=== PATIENT | female | born 1940 | race Caucasian/White ===

== ENCOUNTER 2024-09-11 16:08 | Inpatient (IN) | payer MEDICAID ==
[~2024-09-11] VITALS: Ht 149.9 cm; Wt 69.4 kg
[2024-09-11] MEDS: SODIUM CHLORIDE 0.9% 1,000 ML IV ONE (16:56)
[2024-09-11 17:38] LABS: BG BASE EXCESS -8.3 mmol/L (-2.0-3.0); BG CARBOXYHEMOGLOBIN 0.6 % (0.5-1.5); BG DEOXYHEMOGLOBIN 4.2 % (0.0-5.0); BG FRACTION INSPIRED OXYGEN 21; BG HCO3 ACT 16.9 mmol/L (21.0-28.0); BG METHEMOGLOBIN 0.3 % (0.5-1.5); BG OXYGEN SATURATION 95.8 % (94.0-98.0); BG OXYHEMOGLOBIN 94.9 % (94.0-98.0); BG PCO2 34.1 mmHg (32.0-45.0); BG PH 7.313 (7.350-7.450); BG PO2 80.2 mmHg (83.0-108.0); BG SAMPLE SITE RIGHT BRACHIAL; BG TOTAL HEMOGLOBIN 14.1 g/dL (12.0-16.0); BG VENT MODE ROOM AIR
[2024-09-11 17:59] LABS: CHLORIDE 95 mEq/L (98-107); POTASSIUM 4.8 mEq/L (3.5-5.1); SODIUM 129 mEq/L (136-145)
[2024-09-11 18:00] LABS: CALCIUM 9.1 mg/dL (8.7-10.4); CARBON DIOXIDE 20 mEq/L (21-32)
[2024-09-11 18:03] LABS: HEMATOCRIT. 41.2 % (36.0-48.0); HEMOGLOBIN. 13.4 g/dL (12.0-16.0); LYMPHOCYTES % 8.4 % (20.0-50.0); MEAN CORPUSCULAR HEMOGLOBIN 28.5 pg (28.0-32.0); MEAN CORPUSCULAR HGB CONC 32.4 g/dL (31.0-37.0); NEUTROPHILS % 85.6 % (40.0-76.0); PLATELET 133 x1000/uL (130-400); RED BLOOD CELL COUNT 4.68 mill/uL (4.2-5.4); RED CELL DISTRIBUTION WIDTH 14.9 % (11.6-14.6); WHITE BLOOD COUNT 6.7 x1000/uL (4.5-11.0)
[2024-09-11 18:05] LABS: CREATININE 1.3 mg/dL (0.6-1.0); UREA NITROGEN BLOOD 21 mg/dL (9-23)
[2024-09-11 18:06] LABS: TROPONIN I HIGH SENSITIVITY 8 ng/L (3.0-34)
[2024-09-11 18:07] LABS: ALANINE AMINOTRANSFERASE 12 IU/L (10-49); ALBUMIN 4.1 g/dL (3.2-4.8); ASPARTATE AMINOTRANSFERASE 13 IU/L (<34); BILIRUBIN DIRECT 0.2 mg/dL (<=3.0); PHOSPHORUS 3.7 mg/dL (2.5-4.9)
[2024-09-11 18:08] LABS: BETA HYDROXYBUTYRATE 5.8 mMol/L (0.0-0.3); BILIRUBIN TOTAL 0.6 mg/dL (0.1-1.0); PROTEIN TOTAL 7.7 g/dL (6.0-8.3)
[2024-09-11 18:44] LABS: GLUCOSE 689 mg/dL (70-105)
[2024-09-11] MEDS ORDERED: KCL 20MEQ/100ML PREMIX 100 ML IV PRN (18:45)
[2024-09-11] MEDS ORDERED: POTASSIUM CHLORIDE 40 MEQ in SODIUM CHLORIDE 0.9% 230 ML IV PRN (18:45)
[2024-09-11] MEDS ORDERED: SODIUM PHOSPHATE 15 MMOL in SODIUM CHLORIDE 0.9% 245 ML IV PRN (18:45)
[2024-09-11] MEDS ORDERED: MAGNESIUM 2 G PREMIX 50 ML IV PRN (18:45)
[2024-09-11] MEDS ORDERED: BLOOD SUGAR DIAGNOSTIC STRIP TEST PRN (18:45)
[2024-09-11] MEDS ORDERED: DEXTROSE 50% WATER 50ML SYRINGE IV PRN (18:45)
[2024-09-11] MEDS ORDERED: INSULIN REGULAR (DRIP) 100 UNITS in SODIUM CHLORIDE 0.9% 99 ML IV SCH (18:45)
[2024-09-11] MEDS: BLOOD SUGAR DIAGNOSTIC STRIP TEST SCH (19:25)
[2024-09-11] MEDS: INSULIN REGULAR 100U/100ML PMX 100 ML IV SCH (19:30)
[2024-09-11] MEDS: INSULIN REGULAR (HUMULIN R) 1000UNITS/10ML VIAL IV ONE (19:35)
[2024-09-11] MEDS ORDERED: IPRATROPIUM/ALBUTEROL 0.5-3(2.5)MG/3ML NEB HHN PRN (20:00)
[2024-09-12] MEDS: PANTOPRAZOLE SODIUM 40 MG/VIAL IV SCH (00:31)
[2024-09-12] MEDS: DEXTROSE 5% WATER 1,000 ML IV ONE (03:51)
[2024-09-12 05:16] LABS: HEMATOCRIT 38.4 % (36.0-48.0); HEMOGLOBIN 12.8 g/dL (12.0-16.0); MEAN CORPUSCULAR HEMOGLOBIN 28.6 pg (28.0-32.0); MEAN CORPUSCULAR HGB CONC 33.4 g/dL (31.0-37.0); MEAN CORPUSCULAR VOLUME 85.6 fL (81.0-99.0); PLATELET 127 x1000/uL (130-400); RED BLOOD CELL COUNT 4.49 mill/uL (4.2-5.4); RED CELL DISTRIBUTION WIDTH 14.9 % (11.6-14.6); WHITE BLOOD COUNT 7.7 x1000/uL (4.5-11.0)
[2024-09-12 05:25] LABS: CHLORIDE 100 mEq/L (98-107); POTASSIUM 3.5 mEq/L (3.5-5.1); SODIUM 134 mEq/L (136-145)
[2024-09-12 05:26] LABS: CALCIUM 9.2 mg/dL (8.7-10.4)
[2024-09-12 05:31] LABS: GLUCOSE 286 mg/dL (70-105); UREA NITROGEN BLOOD 21 mg/dL (9-23)
[2024-09-12 05:33] LABS: PHOSPHORUS 1.9 mg/dL (2.5-4.9)
[2024-09-12 05:34] LABS: CARBON DIOXIDE 25 mEq/L (21-32)
[2024-09-12] MEDS ORDERED: ACETAMINOPHEN 325MG TABLET PO PRN (09:30)
[2024-09-12] MEDS ORDERED: ONDANSETRON HCL 4MG/2ML INJ IV PRN (09:30)
[2024-09-12] MEDS ORDERED: DEXTROSE 50% WATER 50ML SYRINGE IV PRN (09:30)
[2024-09-12] MEDS: INSULIN GLARGINE 100 UNITS/ML SUBCUT NR (09:47)
[2024-09-12] MEDS ORDERED: INSULIN GLARGINE 100 UNITS/ML SUBCUT SCH (10:00)
[2024-09-12] MEDS: BLOOD SUGAR DIAGNOSTIC STRIP TEST SCH (11:45)
[2024-09-12] MEDS: INSULIN LISPRO 100 UNITS/ML SUBCUT SCH (12:57)
[2024-09-12 20:00] VITALS: BP 103/48; PULSE 76; RESP 18; TEMP 36.50292; TEMP 36.5292; O2SAT 96
[2024-09-12] MEDS: INSULIN GLARGINE 100 UNITS/ML SUBCUT SCH (21:15)
[2024-09-13] VITALS: BP 115/54; PULSE 82; RESP 20; TEMP 36.72516; O2SAT 97
[2024-09-13 04:00] VITALS: BP 123/58; PULSE 73; RESP 20; TEMP 36.9474; O2SAT 98
[2024-09-13 08:00] VITALS: BP 133/44; PULSE 77; RESP 18; TEMP 36.114; O2SAT 96
[2024-09-13] MEDS: INSULIN LISPRO 100 UNITS/ML SUBCUT SCH (11:44)
[2024-09-13 12:20] VITALS: BP 135/63; PULSE 67; RESP 20; TEMP 36.61404; O2SAT 97
[2024-09-13 13:39] VITALS: BP 125/63; PULSE 70; TEMP 98; O2SAT 100
[2024-09-13 14:17] LABS: CLARITY URINE TURBID (CLEAR); COLOR URINE DARK YELLOW (YELLOW); GLUCOSE URINE 1+ (NEGATIVE); KETONES URINE 1+ (NEGATIVE); LEUKOCYTE ESTERASE URINE 3+ (NEGATIVE); NITRITE URINE POSITIVE (NEGATIVE); OCCULT BLOOD URINE TRACE (NEGATIVE); PROTEIN URINE 1+ (NEGATIVE); SPECIFIC GRAVITY URINE 1.023 (1.005-1.030)
[2024-09-13 14:49] LABS: SQUAMOUS EPITHELIAL CELL URINE 1+ /lpf (RARE/1+)
[2024-09-13 15:00] LABS: BACTERIA URINE 4+; RBC URINE 0-2 /hpf (0-2); WBC URINE TNTC /hpf (0-2)
[2024-09-13] MEDS ORDERED: INSULIN GLARGINE 100 UNITS/ML SUBCUT SCH (22:00)
== END 2024-09-13 18:00 | disposition home or self-care (01) | DRG 420 ==
LOC: ER 16:08 → MICUSO 21:36 → EDBEDREQTM 21:41 → EDBEDREQ 21:41 → EDBEDREQSVC 09-12 09:40 → 5WST 09-12 10:54 → 7WST 09-12 18:19
PROVIDERS: ADMIT Internal Medicine; ATTEND Internal Medicine
DX: E11.10 Type 2 diabetes mellitus with ketoacidosis without coma (principal); J96.01 Acute respiratory failure with hypoxia; G93.41 Metabolic encephalopathy; N17.9 Acute kidney failure, unspecified; R79.89 Other specified abnormal findings of blood chemistry; E87.1 Hypo-osmolality and hyponatremia; D50.9 Iron deficiency anemia, unspecified; G35 Multiple sclerosis; Z79.4 Long term (current) use of insulin
CPT/HCPCS: 36415; 36600; 71045; 80048; 80076; 81003; 82010; 82375; 82805; 82962; 83605; 83735; 83880; 84100; 84484; 85025; 85027; 87077; 87186; 93005; 99291; J1815; J2470; J7030; J7050